=== PATIENT | female | born 1990 | race Two or more races ===

== ENCOUNTER 2021-07-05 01:53 | Emergency (ER) | payer OTHER ==
[~2021-07-05] VITALS: Ht 167.6 cm; Wt 65.3 kg
[2021-07-05 01:56] VITALS: BP 111/68
--- NOTE | 2021-07-05 02:16 | NUR ---
PT IS MEDICALLY CLEARED FOR BOOKING AND RELEASED UNDER THE CARE OF JERAMIE BURGESS IN STABLE CONDITION. PT IS AMBULATORY ON STEADY GAIT.
== END 2021-07-05 02:20 | disposition home or self-care (01) ==
LOC: ER 02:11
DX: J45.909 Unspecified asthma, uncomplicated